=== PATIENT | female | born 1990 | race Caucasian/White ===

== ENCOUNTER → 2019-04-01 | Outpatient (CLI) | payer OTHER ==
--- NOTE | 2019-04-01 14:39 | REP ---
Maxillofacial CT study without contrast: History: Deviated nasal septum. No comparison imaging. Findings: There is moderate mucosal thickening affecting the lower half of the left maxillary sinus. Ethmoid and sphenoid sinuses are clear. The frontal sinuses are small but clear. There is partial opacification of the anterior ethmoid air cells on the left. There is an aerated tashia bullosa on each side, right larger than left. Ostiomeatal complexes are narrow bilaterally. Bony nasal septum deviates somewhat to the left without a visible beak. No intraorbital abnormality is seen. The visualized intracranial structures are unremarkable. Impression: Mild leftward septal deviation. 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 Mucosal thickening in the left maxillary and left ethmoid air cells. Electronically Signed by Herbert Pryor MD 04/01/2019 03:18 P
== END ==
LOC: M RAD 13:19
PROVIDERS: ATTEND Physician Assistant
DX: J34.2 Deviated nasal septum (principal)